=== PATIENT | female | born 1945 | race African-American/Black ===

== ENCOUNTER 2018-02-03 11:09 | Emergency (ER) | payer MEDICARE ==
--- NOTE | 2018-02-03 11:41 | ED ---
General Adult HPI - General Chief complaint: Fall Stated complaint: fall Time Seen by Provider: 02/03/18 11:13 Source: patient, EMS, RN notes reviewed Mode of arrival: EMS Limitations: no limitations - History of Present Illness Initial comments: 72-year-old female presenting for evaluation of left posterior chest pain. Patient states she was in her bathroom yesterday, fell onto her left side striking her mid back. There is no head or neck trauma. Patient was able to ambulate after the injury. No hip or leg pain. She states that this morning the pain has worsened. She does report some pain with deep inspiration. Denies any cough. Denies any central chest pain. Denies abdominal pain. Patient is not on blood thinners. - Related Data Home Medications Medication Instructions Recorded Confirmed Naproxen Sodium [Aleve] 220 mg PO BID PRN 02/03/18 02/03/18 Previous Rx's Medication Instructions Recorded Albuterol Inhaler [Ventolin Hfa 1 - 2 puff INHALATION Q4HR PRN #1 02/03/18 Inhaler] inhaler HYDROcodone/APAP 5-325MG [[place] 1 tab PO Q6HR PRN #12 tab 02/03/18 5-325] methylPREDNISolone Dose Pack 4 mg PO DIRECTED #21 package 02/03/18 [Medrol Dose Pack] Allergies Allergy/AdvReac Type Severity Reaction Status Date / Time No Known Allergies Allergy Verified 02/03/18 12:36 Review of Systems ROS Statement: Those systems with pertinent positive or pertinent negative responses have been documented in the HPI. ROS Other: All systems not noted in ROS Statement are negative. Past Medical History Past Medical History: No Reported History History of Any Multi-Drug Resistant Organisms: None Reported Past Surgical History: Section, Cholecystectomy Past Psychological History: No Psychological Hx Reported Smoking Status: Current every day smoker Past Alcohol Use History: Abuse, Daily Past Drug Use History: None Reported General Exam Limitations: no limitations General appearance: alert, in no apparent distress Head exam: Present: atraumatic, normocephalic Eye exam: Present: normal appearance, PERRL ENT exam: Present: normal exam Neck exam: Present: normal inspection. Absent: tenderness, meningismus Respiratory exam: Present: normal lung sounds bilaterally, wheezes, chest wall tenderness (Chest wall tenderness, left posterior). Absent: respiratory distress Cardiovascular Exam: Present: regular rate, normal rhythm GI/Abdominal exam: Present: soft. Absent: distended, tenderness Extremities exam: Present: normal inspection, full ROM, normal capillary refill. Absent: tenderness Back exam: Absent: vertebral tenderness Neurological exam: Present: alert, oriented X3, CN II-XII intact. Absent: motor sensory deficit Psychiatric exam: Present: normal affect, normal mood Skin exam: Present: warm, dry, intact. Absent: cyanosis, diaphoretic Course Vital Signs 02/03/18 02/03/18 11:12 14:00 Temperature 98.9 F Pulse Rate 92 84 Respiratory 16 16 Rate Blood Pressure 105/56 109/62 O2 Sat by Pulse 92 L 96 Oximetry Medical Decision Making - Medical Decision Making 72-year-old female with slip and fall and left posterior rib pain. X-rays obtained, there was a nondisplaced left eighth rib fracture. There is some atelectasis, no hemo-or pneumothorax. She does have some bilateral wheezing on exam. She is a current smoker. She will be given albuterol and Medrol Dosepak for her wheezing. She is also given pain control and an incentive spirometer. She will return with any worsening pain or difficulty breathing. Disposition Clinical Impression: Fracture, rib, Bronchitis Disposition: HOME SELF-CARE Condition: Fair Instructions: Fall Prevention for Older Adults (ED), Rib Fracture (ED) Prescriptions: Albuterol Inhaler [Ventolin Hfa Inhaler] 1 - 2 puff INHALATION Q4HR PRN #1 inhaler PRN Reason: Shortness Of Breath HYDROcodone/APAP 5-325MG [[place] 5-325] 1 tab PO Q6HR PRN #12 tab PRN Reason: Pain methylPREDNISolone Dose Pack [Medrol Dose Pack] 4 mg PO DIRECTED #21 package Referrals: None,Stated [Primary Care Provider] - 1-2 days Pilar Hutchinson MD [REFERRING] - 1-2 days Time of Disposition: 14:30
--- NOTE | 2018-02-03 13:01 | XR ---
EXAMINATION TYPE: XR ribs LT w pa chest x-ray , 5 VIEWS DATE OF EXAM ORDERED: 02/03/2018 HISTORY: Pain. COMPARISON: Previous study dated 02/17/2018. FINDINGS: The heart is upper limits of normal in size. There is some platelike atelectasis in the le ft midlung. Lungs otherwise clear. Pleural spaces are clear. There is a minimally displaced fracture of the left eighth rib no other definite rib fracture is seen. No pneumothorax is identified. IMPRESSION: 1. MINIMALLY DISPLACED FRACTURE OF THE LEFT EIGHTH RIB. 2. PLATELIKE ATELECTASIS, LEFT MIDLUNG. 3. BORDERLINE CARDIOMEGALY.
[2018-02-03 14:21] VITALS: BP 109/62
[2018-02-03 14:39] VITALS: PULSE 90; RESP 22; TEMP 97.6
== END 2018-02-03 15:20 | disposition home or self-care (01) ==
LOC: EC 11:09
DX: S22.32XA Fracture of one rib, left side, initial encounter for closed fracture (principal); J40 Bronchitis, not specified as acute or chronic; J98.11 Atelectasis; F17.200 Nicotine dependence, unspecified, uncomplicated; W18.2XXA Fall in (into) shower or empty bathtub, initial encounter; Y92.002 Bathroom of unspecified non-institutional (private) residence as the place of occurrence of the external cause
CPT/HCPCS: 99284